=== PATIENT | female | born 1955 | race Native Hawaiian/Other Pacific Islander ===

== ENCOUNTER 2020-11-22 12:47 | Outpatient (CLI) | payer BC, OTHER ==
[~2020-11-22] VITALS: Ht 152.4 cm; Wt 74.4 kg
== END 2020-11-22 19:39 | disposition home or self-care (01) ==
LOC: INF 12:47
PROVIDERS: ATTEND Internal Medicine
DX: Z23 Encounter for immunization (principal); U07.1 COVID-19
CPT/HCPCS: 96365; M0244